=== PATIENT | female | born 1955 | race African-American/Black ===

== ENCOUNTER 2019-09-04 10:04 | Emergency (ER) | payer BC ==
[~2019-09-04] VITALS: Ht 162.6 cm; Wt 97.1 kg
[~2019-09-04 10:04] MED LIST: ASPIRIN81 M1 PO; ATENOLOL100 MG PO; BENICAR HCT 401 EAC1 PO; CENTRUM SILVER1 EAC1 PO; SIMVASTATIN40 MG PO; SIMVASTATIN5 MG PO
[2019-09-04 10:20] VITALS: BP 170/89
--- NOTE | 2019-09-04 10:20 | NUR ---
ED Nurse Note: pt walked in to ER from home due to chest pressure 05/01 since June. pt aao x4 and ambulatory. skin clean and intact. calm and cooperative. no acute distress noted. pt denied heavy lifing. pt is in gown and on threat monitoring analyst.
--- NOTE | 2019-09-04 10:59 | NUR ---
ED Nurse Note: x-ray at bedside.
--- NOTE | 2019-09-04 11:01 | Emergency Room Report ---
History of Present Illness General Chief Complaint: Chest Pain Source: Patient Present Illness HPI Disclaimer: Please note that this report is being documented using [employer] technology. This can lead to erroneous entry secondary to incorrect interpretation by the dictating instrument. HPI: 63-year-old female with a history of hypertension, hyperlipidemia, GERD presents for evaluation of chest pressure. Symptoms present for the past few months. Notes intermittent chest pressure not associated by exercise. Sometimes it is relieved by rest and sometimes it is also relieved by activity. She states it was worsening over the past few weeks. Denies shortness of breath but does note intermittent cough sometimes with phlegm. Denies fevers or chills but notes myalgias. Denies abdominal pain but sometimes a burning over the chest. She had a stress test 2 years ago and stated that she did not need any further cardiac work-up. Denies exertional dyspnea, lower extremity edema or leg pain with long ambulation. PMH: Pretension, hyperlipidemia, GERD PSH: Review Allergies: Penicillin Social Hx: Denies drug or alcohol abuse Allergies: Coded Allergies: AMPICILLIN (Verified Allergy, Intermediate, Shortness of Breath, 07/29/12) PENICILLINS (Verified Allergy, Intermediate, Hives, 07/29/12) Nursing Documentation-PMH Past Medical History: No History, Except For Hx Cardiac Problems: No - High Cholesterol Hx Hypertension: Yes Hx Cancer: No Hx Gastrointestinal Problems: No Hx Neurological Problems: No Review of Systems All Other Systems: negative except mentioned in HPI Physical Exam Vital Signs Date Time Temp Pulse Resp B/P (MAP) Pulse Ox O2 Delivery O2 Flow Rate FiO2 09/04/19 10:14 98.2 74 16 170/89 (116) 96 Room Air General: Awake and alert, no acute distress HEENT: NC/AT. EOMI. Neck: Supple, trachea midline Chest Wall: No tenderness, no deformity Cardiovascular: RRR. S1 and S2 normal. No murmur appreciated Resp: Normal work of breathing. No cough, wheezing or crackles appreciated Abdomen: Abdomen is soft, nondistended. Nontender Skin: Intact. No abrasions, laceration or rash over the exposed skin MSK: Normal tone and bulk. Moving all extremities. No obvious deformity. Lower extreme edema Neuro: Awake and alert. Mentating appropriately. Medical Decision Making Diagnostic Impression: Primary Impression: Chest pain ER Course 61-year-old female presents for evaluation of chest pain going on for several months. Differential includes was not limited to angina, ACS, GERD, bronchitis , pneumothorax, pneumonia. We will start a broad metabolic infectious work-up. Will obtain EKG, chest x-ray and blood work. Laboratory Tests Test 09/04/19 10:45 White Blood Count 5.2 K/UL (4.8-10.8) Red Blood Count 4.75 M/UL (4.20-5.40) Hemoglobin 14.8 G/DL (12.0-16.0) Hematocrit 44.3 % (37.0-47.0) Mean Corpuscular Volume 93 FL (80-99) Mean Corpuscular Hemoglobin 31.1 PG (27.0-31.0) H Mean Corpuscular Hemoglobin Concent 33.3 G/DL (32.0-36.0) Red Cell Distribution Width 12.0 % (11.6-14.8) Platelet Count 266 K/UL (150-450) Mean Platelet Volume 6.0 FL (6.5-10.1) L Neutrophils (%) (Auto) 50.6 % (45.0-75.0) Lymphocytes (%) (Auto) 34.5 % (20.0-45.0) Monocytes (%) (Auto) 10.4 % (1.0-10.0) H Eosinophils (%) (Auto) 2.4 % (0.0-3.0) Basophils (%) (Auto) 2.2 % (0.0-2.0) H Sodium Level 137 MMOL/L (136-145) Potassium Level 3.5 MMOL/L (3.5-5.1) Chloride Level 100 MMOL/L (98-107) Carbon Dioxide Level 35 MMOL/L (21-32) H Anion Gap 2 mmol/L (5-15) L Blood Urea Nitrogen 9 mg/dL (7-18) Creatinine 0.7 MG/DL (0.55-1.30) Estimate Glomerular Filtration Rate > 60 mL/min (>60) Glucose Level 85 MG/DL (74-106) Calcium Level 9.0 MG/DL (8.5-10.1) Total Bilirubin 0.4 MG/DL (0.2-1.0) Aspartate Amino Transferase (AST) 29 U/L (15-37) Alanine Aminotransferase (ALT) 32 U/L (12-78) Alkaline Phosphatase 80 U/L (46-116) Troponin I 0.000 ng/mL (0.000-0.056) Total Protein 7.7 G/DL (6.4-8.2) Albumin 3.7 G/DL (3.4-5.0) Globulin 4.0 g/dL Albumin/Globulin Ratio 0.9 (1.0-2.7) L EKG Diagnostic Results EKG Time: 10:40 Rate: normal Rhythm: NSR ST Segments: no acute changes Other Impression Sinus rhythm, normal axis, normal intervals, no ST segment changes. Rhythm Strip Diag. Results Rhythm Strip Time: 10:40 EP Interpretation: yes Rate: 60s Rhythm: NSR, no PVC's, no ectopy Chest X-Ray Diagnostic Results Chest X-Ray Diagnostic Results : Chest X-Ray Ordered: Yes # of Views/Limited/Complete: 1 View Indication: Chest Pain EP Interpretation: Yes Interpretation: no consolidation, no effusion, no pneumothorax, no acute cardiopulmonary disease Impression: No acute disease Electronically Signed by: Electronically signed by Dr. Emmanuel Negrete Reevaluation Time: 11:50 Last Vital Signs Date Time Temp Pulse Resp B/P (MAP) Pulse Ox O2 Delivery O2 Flow Rate FiO2 09/04/19 10:20 98.2 76 16 170/89 96 Room Air Reevaluation Impression Labs, EKG, chest x-ray have returned within normal limits. No evidence of acute infection or other major pathology. Troponin is 0. Likely the patient if there has some underlying cardio vascular disease which should be followed up with outpatient stress test or has symptomatic GERD for which we will start famotidine today. Discussed the need to cut back on her alcohol and to change her diet as well. She understands that she needs to follow-up with her PMD in the next 2 to 3 days to schedule outpatient stress testing and to see her previous manager battery that she had been seeing or a new manager battery. She understands and agrees with this treatment plan and knows to come back to the emergency department any new or worsening symptoms. Disposition: HOME, SELF-CARE Condition: Stable Scripts Famotidine* (Pepcid 20mg tablet*) 20 Mg Tablet 20 MG ORAL TWICE A DAY, #60 TAB 0 Refills Prov: Emmanuel Negrete MD 09/04/19 Emmanuel Negrete MD Sep 04, 2019 11:01
[2019-09-04 11:05] LABS: BASOPHILS % (AUTO) 2.2 % (0.0-2.0); EOSINOPHILS % (AUTO) 2.4 % (0.0-3.0); HEMATOCRIT 44.3 % (37.0-47.0); HEMOGLOBIN 14.8 G/DL (12.0-16.0); LYMPHOCYTES % (AUTO) 34.5 % (20.0-45.0); MEAN CORPUSCULAR VOLUME 93 FL (80-99); MONOCYTES % (AUTO) 10.4 % (1.0-10.0); NEUTROPHILS % (AUTO) 50.6 % (45.0-75.0); PLATELET COUNT 266 K/UL (150-450); RED BLOOD COUNT 4.75 M/UL (4.20-5.40); WHITE BLOOD COUNT 5.2 K/UL (4.8-10.8)
[2019-09-04 11:19] LABS: ANION GAP 2 mmol/L (5-15); BLOOD UREA NITROGEN 9 mg/dL (7-18); CARBON DIOXIDE 35 MMOL/L (21-32); CHLORIDE 100 MMOL/L (98-107); CREATININE 0.7 MG/DL (0.55-1.30); POTASSIUM 3.5 MMOL/L (3.5-5.1); SODIUM 137 MMOL/L (136-145)
[2019-09-04 11:23] LABS: ALANINE AMINOTRANSFERASE 32 U/L (12-78); ALBUMIN 3.7 G/DL (3.4-5.0); ALBUMIN/GLOBULIN RATIO 0.9 (1.0-2.7); ALKALINE PHOSPHATASE 80 U/L (46-116); ASPARTATE AMINO TRANSFERASE 29 U/L (15-37); BILIRUBIN,TOTAL 0.4 MG/DL (0.2-1.0)
[2019-09-04] MEDS ORDERED: FAMOTIDINE20 MG ORAL (11:49)
--- NOTE | 2019-09-04 11:57 | Diagnostic Imaging Report ---
Indication: Chest pain Comparison: 06/21/2016 A single view chest radiograph was obtained. Findings: Cardiomediastinal appearance is within normal limits for age. The lungs are clear. Pulmonary vascularity is appropriate. The diaphragmatic contour is smooth and costophrenic angles are sharp. No pleural effusions are identified. The bones are unremarkable. Impression: No acute findings
[2019-09-04 12:17] VITALS: BP 156/74
--- NOTE | 2019-09-04 12:18 | NUR ---
ED Nurse Note: Pt cleared by health care Provider for discharge. DC instructions, prescription was sent electronically and explained to pt and verbalized understanding of teachings. All medical deviecs such as ID band removed. Pt is AAO x4, ambulatory and left with all personal belongings.
== END 2019-09-04 12:18 | disposition home or self-care (01) ==
LOC: EMR 11:10
DX: R07.9 Chest pain, unspecified (principal); R60.0 Localized edema; I10 Essential (primary) hypertension; E78.5 Hyperlipidemia, unspecified; K21.9 Gastro-esophageal reflux disease without esophagitis; Z88.0 Allergy status to penicillin; E78.00 Pure hypercholesterolemia, unspecified
CPT/HCPCS: 36415; 71045; 80053; 84484; 85025; 99284